=== PATIENT | male | born 1985 | race Hispanic/Latino ===

== ENCOUNTER 2023-07-16 20:44 | Emergency (ER) | payer OTHER ==
[~2023-07-16] VITALS: Ht 177.8 cm; Wt 90.7 kg
[2023-07-16 21:01] VITALS: BP 125/73; PULSE 102; RESP 18
[2023-07-16] MEDS ORDERED: KETO10 PO (21:27)
[2023-07-16] MEDS: MORPHINE 2 MG SYG IM STA (21:37)
[2023-07-16] MEDS: ONDANSETRON ODT 4MG TAB SL STA (21:38)
== END 2023-07-16 21:56 | disposition home or self-care (01) ==
LOC: EDH 20:44
DX: M79.18 Myalgia, other site (principal); M79.662 Pain in left lower leg; Z98.890 Other specified postprocedural states
CPT/HCPCS: 99283; 96372; J2270